=== PATIENT | male | born 1995 | race Caucasian/White ===

== ENCOUNTER 2017-05-16 10:59 | Emergency (ER) | payer BC ==
[2017-05-16 11:17] VITALS: TEMP 98.4
--- NOTE | 2017-05-16 15:21 | EDPHY ---
H & P Time Seen by Provider: 05/16/17 13:19 HPI/ROS: CHIEF COMPLAINT: Right-sided face numbness HISTORY OF PRESENT ILLNESS: This 22-year-old man presents with symptoms on the right side of his face which started on Saturday of this week 4 days ago. 1st he felt like his upper right lip felt numb and then extended to his nasolabial fold. His fiancee today noticed that his smile was different and presents the ER for evaluation. He does not notice any double vision or trouble closing his eyes. His speech is normal. No headache. He did note that in January and February of last year he started having numbness and tingling on the ulnar 3 fingers of his right hand which still persists. Today symptoms are mild. REVIEW OF SYSTEMS: Eye: no change in vision ENT: no sore throat Cardiac: no chest pain or syncope Pulmonary: no cough or SOB Abdomen: no vomiting, diarrhea, abdominal pain Musculoskeletal: History of intermittent back pain Skin: no rash Neuro: HPI Constitutional: no fever : no urinary symptoms A comprehensive 10 point review of systems is otherwise negative aside from elements mentioned in the history of present illness. PAST MEDICAL HISTORY: Migraine headaches as a kid but none recently, back pain Social history: Marijuana use but no IV drugs General Appearance: Alert and conversant, cooperative. Eyes: No scleral icterus. ENT, Mouth: Normal mucous membranes. Palate elevates symmetrically. Slight left facial droop. Respiratory: Normal respiratory effort, breath sounds equal, lungs are clear to auscultation. Cardiovascular: Regular rate and rhythm. Gastrointestinal: Abdomen is soft and non tender. Neurological: Alert and oriented x3. Normally conversant. Patient does have a symmetric forehead when he raises his eyebrows. Slight facial droop, normal movement and sensation in all 4 extremities, no pronator drift. Ambulatory without ataxia. Skin: Warm and dry, no rashes. Musculoskeletal: No peripheral edema and no joint swelling. Psychiatric: Not agitated. Emergency Department course/MDM: Patient presents with symptoms which clinically are suggestive of Chi's palsy but with a symmetrically wrinkling forehead. MRI discussed and consented. 1519: Discussed in detail with neurologist Dr. Magallon. No acute treatment, office follow-up next week. 1525: Results discussed and reviewed on the computer system with the patient. I emphasized that I think that based on the radiology impression multiple sclerosis is highly likely but still not definitive. We discussed the neurologist recommendation for no acute treatment as he does not currently have disabling symptoms. He will follow up in the office as recommended by the [employer] security consultant neurologist. Smoking Status: Heavy smoker Constitutional: Initial Vital Signs Temperature (C) 36.9 C 05/16/17 11:13 Heart Rate 76 05/16/17 11:13 Respiratory Rate 16 05/16/17 11:13 Blood Pressure 133/74 H 05/16/17 11:13 O2 Sat (%) 96 05/16/17 11:13 O2 Delivery Mode Room Air Allergies/Adverse Reactions: No Known Allergies Allergy (Unverified 05/16/17 11:17) Home Medications: Medication Instructions Recorded NK [No Known Home Meds] 05/16/17 Medical Decision Making - Diagnostics Imaging Results: Imaging Impressions Brain MRI 05/16/17 13:30 Impression: Findings are consistent with a multifocal demyelinating process such as multiple sclerosis. Results called and discussed with KENDALL ESTES, at 05/16/2017 15:13 Differential Diagnosis: Differential considered including but not limited to multiple sclerosis, Chi's palsy, intracranial mass tumor or bleed, ITEM PROCESSOR infection. Departure - Departure Disposition: Home, Routine, Self-Care Clinical Impression: Multiple sclerosis Condition: Good Instructions: Magnetic Resonance Imaging (ED), Autoimmune Disease (ED) Additional Instructions: Your MRI has findings that are highly suggestive of multiple sclerosis. Please return if your symptoms got a lot worse. Call the neurologist referral for office evaluation within the next week. Referrals: Peter Magallon DO [Doctor of Osteopathy] - As per Instructions
[2017-05-16 15:40] VITALS: BP 135/74; PULSE 70; RESP 19; O2SAT 98
== END 2017-05-16 15:43 | disposition home or self-care (01) ==
DX: G35 Multiple sclerosis (principal); F17.200 Nicotine dependence, unspecified, uncomplicated

== ENCOUNTER → 2017-06-14 | Outpatient (CLI) | payer BC | LOC: FIMAGING 15:16 | PROVIDERS: ATTEND Physician Assistant Medical ==